=== PATIENT | female | born 1970 | race Caucasian/White ===

== ENCOUNTER → 2018-06-06 | Outpatient (CLI) | payer BC ==
[~2018-06-06] MED LIST: ASCO500 PO; ESTR2 PO; FERR325 PO; FURO40 PO; HYDR1TAB94 PO; Hair, Skin & N1 EACH PO; Inderal 20 mg T20 MG PO; LEVSOD75 PO; NAPR500 PO; OXYACE5T PO; PROPRANOLOL; SIME80CH PO
== END | disposition home or self-care (01) ==
LOC: LAB SHORT 13:23 → PLD 13:23
DX: D22.5 Melanocytic nevi of trunk (principal)
CPT/HCPCS: 88305

== ENCOUNTER 2021-03-24 20:27 | Emergency (ER) | payer BC ==
[~2021-03-24] VITALS: Ht 167.6 cm; Wt 90.7 kg
[2021-03-24] MEDS ORDERED: ONDA4ODT MM (21:32)
[2021-03-24] MEDS ORDERED: Tessalon Perle100 MG PO (21:32)
== END 2021-03-24 21:43 | disposition home or self-care (01) ==
LOC: ER 20:27
DX: R11.2 Nausea with vomiting, unspecified (principal); U07.1 COVID-19; E05.00 Thyrotoxicosis with diffuse goiter without thyrotoxic crisis or storm; Z79.890 Hormone replacement therapy; Z79.899 Other long term (current) drug therapy
CPT/HCPCS: 99284; A9270

== ENCOUNTER 2021-11-24 08:41 | Day surgery (SDC) | payer BC ==
[~2021-11-24] VITALS: Ht 167.6 cm; Wt 110.9 kg
[~2021-11-24 08:41] MED LIST changes: +ONDA4ODT MM; +Tessalon Perle100 MG PO
== END 2021-11-24 10:44 | disposition home or self-care (01) ==
LOC: ORSCSDS 08:41
PROVIDERS: Student in an Organized Health Care Education/Training Program
PROC: 0DBP8ZX Excision of Rectum, Via Natural or Artificial Opening Endoscopic, Diagnostic (ICD-10-PCS; principal; 2021-11-24 10:00)
PROC: 0DBN8ZX Excision of Sigmoid Colon, Via Natural or Artificial Opening Endoscopic, Diagnostic (ICD-10-PCS; principal; 2021-11-24 10:00)
PROC: 0DBH8ZX Excision of Cecum, Via Natural or Artificial Opening Endoscopic, Diagnostic (ICD-10-PCS; principal; 2021-11-24 10:00)
DX: Z12.11 Encounter for screening for malignant neoplasm of colon (principal); K62.1 Rectal polyp; K63.5 Polyp of colon; I10 Essential (primary) hypertension; Z85.850 Personal history of malignant neoplasm of thyroid; F32.A Depression, unspecified; Z79.899 Other long term (current) drug therapy; E66.9 Obesity, unspecified; Z68.39 Body mass index [BMI] 39.0-39.9, adult
CPT/HCPCS: 88305; J2704; J7120

== ENCOUNTER → 2023-09-07 | Outpatient (CLI) | payer BC | LOC: LAB 12:05 → LAB SHORT 12:05 | DX: D18.01 Hemangioma of skin and subcutaneous tissue (principal) | CPT/HCPCS: 88305 ==